=== PATIENT | female | born 1995 | race Two or more races ===

== ENCOUNTER 2020-08-06 13:23 | Emergency (ER) | payer MEDICAID ==
[~2020-08-06] VITALS: Ht 167.6 cm; Wt 67.0 kg
[2020-08-06 15:45] VITALS: BP 114/71
== END 2020-08-06 15:47 | disposition home or self-care (01) ==
LOC: ER 13:23
DX: S63.613A Unspecified sprain of left middle finger, initial encounter (principal); X58.XXXA Exposure to other specified factors, initial encounter; Y93.89 Activity, other specified; Y92.89 Other specified places as the place of occurrence of the external cause; Y99.8 Other external cause status
CPT/HCPCS: 29130; 73140; 99283

== ENCOUNTER 2021-07-30 01:48 | Inpatient (IN) | payer MEDICAID ==
[~2021-07-30] VITALS: Ht 167.6 cm; Wt 88.5 kg
[2021-07-30] MEDS ORDERED: PNV1TABL76 PO (02:35)
[2021-07-30] MEDS ORDERED: NALOXONE HCL 0.4 MG/ML 1ML VIAL IM PRN (02:45)
[2021-07-30] MEDS ORDERED: CARBOPROST TROMETHAMINE 250 MCG/ML AMPUL IM PRN (02:45)
[2021-07-30] MEDS ORDERED: METHYLERGONOVINE MALEATE 0.2 MG/ML IM PRN (02:45)
[2021-07-30] MEDS: LACTATED RINGERS 1,000 ML IV SCH ×4 (03:15→18:34)
[2021-07-30] MEDS ORDERED: DEXT 5%/LR + PITOCIN 20UNITS/L 1,000 ML IV SCH (03:30)
[2021-07-30] MEDS ORDERED: LIDOCAINE HCL 1% 20ML VIAL (Pyxis) INJ INFIL SCH (03:30)
[2021-07-30 03:48] LABS: BASOPHILS % 0.4 % (0.0-2.0); EOSINOPHILS % 0.6 % (0.0-5.0); HEMATOCRIT. 30.7 % (36.0-48.0); HEMOGLOBIN. 10.2 g/dL (12.0-16.0); LYMPHOCYTES % 36.6 % (20.0-50.0); MEAN CORPUSCULAR HEMOGLOBIN 26.8 pg (28.0-32.0); MEAN CORPUSCULAR VOLUME 80.7 fL (81.0-99.0); MONOCYTES % 10.4 % (2.0-8.0); PLATELET 184 x1000/uL (130-400)
[2021-07-30 03:55] LABS: CHLORIDE 110 mEq/L (98-107)
[2021-07-30 04:00] LABS: PARTIAL THROMBOPLASTIN TIME 28.5 sec (23.4-31.0); PROTHROMBIN TIME 10.7 sec (9.6-11.0)
[2021-07-30 04:10] LABS: CLARITY URINE CLEAR (CLEAR); COLOR URINE YELLOW (YELLOW); KETONES URINE 1+ (NEGATIVE); LEUKOCYTE ESTERASE URINE NEGATIVE (NEGATIVE); NITRITE URINE NEGATIVE (NEGATIVE); OCCULT BLOOD URINE NEGATIVE (NEGATIVE); PH URINE 5.5 (4.5-8.0); PROTEIN URINE NEGATIVE (NEGATIVE); SPECIFIC GRAVITY URINE 1.027 (1.005-1.030)
[2021-07-30 04:29] LABS: HEPATITIS B SURFACE ANTIGEN NEGATIVE
[2021-07-30 04:37] LABS: *BENZODIAZEPINES SCREEN URINE NEGATIVE (NEGATIVE); *COCAINE SCREEN URINE NEGATIVE (NEGATIVE); METHADONE URINE SCREEN NEGATIVE (NEGATIVE)
[2021-07-30 04:38] LABS: *AMPHETAMINES SCREEN URINE NEGATIVE (NEGATIVE); *BARBITURATES SCREEN URINE NEGATIVE (NEGATIVE); CANNABINOID URINE SCREEN NEGATIVE (NEGATIVE); PHENCYCLIDINE URINE SCREEN NEGATIVE (NEGATIVE)
[2021-07-30 04:40] LABS: OPIATES URINE SCREEN NEGATIVE (NEGATIVE)
[2021-07-30] MEDS: BUTORPHANOL TARTRATE 2 MG/ML VIAL IV PRN (21:46)
[2021-07-31] MEDS: BUTORPHANOL TARTRATE 2 MG/ML VIAL IV PRN (01:44)
[2021-07-31] MEDS ORDERED: IBUPROFEN 800MG TABLET PO PRN (05:15)
[2021-07-31] MEDS ORDERED: DEXT 5%/LR + PITOCIN 20UNITS/L 1,000 ML IV SCH (05:30)
[2021-07-31] MEDS ORDERED: LANOLIN OINT 7GM TUBE TOP PRN (06:00)
[2021-07-31] MEDS ORDERED: BENZOCAINE/LANOLIN/ALOE VERA SPRAY TOP PRN (06:00)
[2021-07-31] MEDS ORDERED: ACETAMINOPHEN WITH CODEINE 300/30MG TABLET PO PRN (06:00)
[2021-07-31] MEDS ORDERED: IBUPROFEN 400MG TABLET PO PRN (06:00)
[2021-07-31] MEDS ORDERED: GLYCERIN/WITCH HAZEL LEAF MEDICATED PAD TOP PRN (06:00)
[2021-07-31] MEDS ORDERED: HEMORRHOIDAL SUPP PR PRN (06:00)
[2021-07-31] MEDS ORDERED: DIPHENHYDRAMINE 25MG CAPSULE PO PRN (06:00)
[2021-07-31] MEDS ORDERED: BISACODYL 10MG SUPP PR PRN (06:00)
[2021-07-31] MEDS ORDERED: RHO(D) IMMUNE GLOBULIN 300 MCG/SYR IM PRN (06:00)
[2021-07-31 08:30] VITALS: BP 134/74
[2021-07-31 17:35] VITALS: BP 112/71
[2021-07-31 19:30] VITALS: BP 126/77
[2021-07-31] MEDS: DOCUSATE SODIUM 100MG CAPSULE PO SCH (21:17)
[2021-07-31] MEDS: PRENATAL VIT/FE FUMARATE/FA TABLET PO SCH (21:17)
[2021-07-31] MEDS: SIMETHICONE 80MG TABLET CHEW PO SCH (21:17)
[2021-07-31] MEDS: IBUPROFEN 800MG TABLET PO PRN (21:19)
[2021-07-31 23:45] VITALS: BP 128/78
[2021-08-01 08:00] VITALS: BP 125/81
[2021-08-01] MEDS: SIMETHICONE 80MG TABLET CHEW PO SCH ×5 (08:00→20:46)
[2021-08-01] MEDS: IBUPROFEN 800MG TABLET PO PRN ×2 (09:48→20:46)
[2021-08-01] MEDS: PRENATAL VIT/FE FUMARATE/FA TABLET PO SCH (09:48)
[2021-08-01] MEDS: FERROUS SULFATE 325MG TABLET PO SCH ×3 (09:48→17:30)
[2021-08-01 16:00] VITALS: BP 122/72
[2021-08-01 20:00] VITALS: BP 114/68
[2021-08-01] MEDS: DOCUSATE SODIUM 100MG CAPSULE PO SCH (20:46)
[2021-08-02 04:30] VITALS: BP 114/61
[2021-08-02] MEDS ORDERED: IBUP-2030 PO (06:51)
[2021-08-02] MEDS ORDERED: FERR325T23 PO (06:51)
[2021-08-02 08:00] VITALS: BP 129/63
[2021-08-02] MEDS: FERROUS SULFATE 325MG TABLET PO SCH (08:11)
[2021-08-02] MEDS: PRENATAL VIT/FE FUMARATE/FA TABLET PO SCH (08:11)
[2021-08-02] MEDS: IBUPROFEN 800MG TABLET PO PRN (08:12)
== END 2021-08-02 12:30 | disposition home or self-care (01) | DRG 560 ==
LOC: 8 EST LDRP 01:48 → OBSVTOIN 01:48 → 8EST 07-31 06:00
PROVIDERS: ADMIT Obstetrics & Gynecology; ATTEND Obstetrics & Gynecology
PROC: 10E0XZZ Delivery of Products of Conception, External Approach (ICD-10-PCS; principal; 2021-07-31)
DX: O13.4 Gestational [pregnancy-induced] hypertension without significant proteinuria, complicating childbirth (principal); Z37.0 Single live birth; O14.90 Unspecified pre-eclampsia, unspecified trimester; O99.03 Anemia complicating the puerperium; Z20.822 Contact with and (suspected) exposure to COVID-19; Z3A.40 40 weeks gestation of pregnancy
CPT/HCPCS: 36415; 76805; 76818; 80053; 80305; 81003; 84550; 85025; 85384; 86592; 86703; 86762; 86850; 86900; 87340; 99281; G0378; J0595; J2590; J3490; J7120; A4315